=== PATIENT | female | born 1965 | race American Indian/Alaskan Native ===

== ENCOUNTER 2020-11-20 14:42 | Outpatient (CLI) | payer BC, OTHER ==
--- NOTE | 2020-11-20 15:20 | XRay Report ---
CHEST PA AND LATERAL VIEWS INDICATION: SOB/ WHEEZING. COMPARISON: None. FINDINGS: Support devices: None. Heart: Within normal limits. Lungs/Pleura: No acute pulmonary or pleural findings. IMPRESSION: 1. No acute findings. Signer Name: Benson Kingston MD Signed: 11/20/2020 3:15 PM Workstation Name: [id number]
== END 2020-11-20 14:43 | disposition home or self-care (01) ==
LOC: SPVIMAG 14:42
PROVIDERS: ATTEND Internal Medicine
DX: R06.02 Shortness of breath (principal); R06.2 Wheezing
CPT/HCPCS: 71046

== ENCOUNTER 2022-01-10 09:53 | Emergency (ER) | payer OTHER ==
[2022-01-10] MEDS ORDERED: ONDANSETRON 4 MG/2 ML INJ IV ONE (10:10)
[2022-01-10] MEDS ORDERED: MORPHINE 4 MG/1 ML INJ IV ONE (10:10)
[2022-01-10] MEDS ORDERED: SODIUM CHLORIDE 0.9% 1000 ML 1,000 ML IV ONE (10:10)
[2022-01-10] MEDS ORDERED: HYDROmorphone 1 MG/1 ML INJ IV ONE (10:33)
[2022-01-10 11:12] LABS: Basophils # (Auto) 0.1 K/mm3 (0.0-0.1); Basophils % (Auto) 0.8 % (0.0-1.8); Eosinophils # (Auto) 0.3 K/mm3 (0.0-0.4); Eosinophils % (Auto) 3.6 % (0.0-4.3); Hematocrit 38.7 % (30.3-42.9); Hemoglobin 13.3 gm/dl (10.1-14.3); Lymphocytes # (Auto) 1.9 K/mm3 (1.2-5.4); Lymphocytes % (Auto) 26.8 % (13.4-35.0); Mean Corpuscular HGB Conc 34 % (30-34); Mean Corpuscular Volume 85 fl (79-97); Monocytes # (Auto) 0.5 K/mm3 (0.0-0.8); Monocytes % (Auto) 7.7 % (0.0-7.3); Platelet Count 186 K/mm3 (140-440); Red Blood Count 4.54 M/mm3 (3.65-5.03); Red Cell Distribution Width 13.1 % (13.2-15.2)
[2022-01-10 11:36] LABS: Alanine Aminotransferase 27 units/L (7-56); Albumin 4.2 g/dL (3.9-5); BUN/Creatinine Ratio 18; Blood Urea Nitrogen 11 mg/dL (7-17); Calcium 8.8 mg/dL (8.4-10.2); Hemolysis Index 8
--- NOTE | 2022-01-10 12:24 | Cat Scan Report ---
CT CHEST WITH CONTRAST INDICATION / CLINICAL INFORMATION: pain s/p fall OMNIPAQUE 350 100ML. TECHNIQUE: Axial CT images were obtained through the chest after IV contrast. All CT scans at this [facility] are performed using CT dose reduction for ALARA by means of automated exposure control. COMPARISON: None available. FINDINGS: SKELETAL SYSTEM: No acute abnormality. HEART: No significant abnormality. CORONARY ARTERY CALCIFICATION: Present -- Mild. THORACIC AORTA: No significant abnormality. MEDIASTINUM / AMADOR: No significant abnormality. PLEURA: No pleural effusion. No pneumothorax. LUNGS: No acute air space or interstitial disease. ADDITIONAL FINDINGS: None. IMPRESSION: 1. No significant abnormality. Signer Name: Benson Kingston MD Signed: 01/10/2022 12:19 PM Workstation Name: [id number]
--- NOTE | 2022-01-10 12:35 | Cat Scan Report ---
CT ABDOMEN AND PELVIS WITH IV CONTRAST INDICATION: pain s/p fall OMNIPAQUE 350 100ML. COMPARISON: None available. TECHNIQUE: All CT scans at this facility use dose modulation, automated exposure control, iterative reconstructi on or weight based dosing, when appropriate, to reduce radiation dose to as low as reasonably achieva ble. FINDINGS: Lung Bases: No significant abnormality. Skeletal System: No acute abnormality. ABDOMEN: Liver: No significant abnormality. Gallbladder: Removed. Bile Ducts: No significant abnormality. Adrenals: No significant abnormality. Right Kidney: No significant abnormality. Left Kidney: No significant abnormality. There is a simple cyst in the upper pole. Pancreas: No significant abnormality. Spleen: No significant abnormality. Upper GI tract: No significant abnormality. Lymph Nodes: No significant adenopathy. Aorta: No significant abnormality. Additional Findings: No significant abnormality. PELVIS: Colon: No acute abnormality. Urinary Bladder and Distal Ureters: No significant abnormality. Appendix: No significant abnormality. Lymph Nodes: No significant adenopathy. Additional Findings: None. IMPRESSION: 1. No acute process in the abdomen or pelvis. Signer Name: Benson Kingston MD Signed: 01/10/2022 12:31 PM Workstation Name: [id number]
--- NOTE | 2022-01-10 12:38 | Cat Scan Report ---
. CT LUMBAR SPINE WITHOUT CONTRAST INDICATION: Low back pain after fall. TECHNIQUE: Axial CT images of the spine were obtained. Sagittal and coronal reformatted images were produced. Al l CT scans at this location are performed using CT dose reduction for ALARA by means of automated exp osure control. COMPARISON: None available. FINDINGS: ACUTE FRACTURE(S) OR SUBLUXATION: None. SPINAL DEGENERATIVE CHANGES: No significant degenerative changes. PARASPINAL SOFT TISSUES: No soft tissue swelling or other acute abnormalities. ADDITIONAL FINDINGS: No significant additional findings. IMPRESSION: 1. No acute fracture or subluxation in the spine in neutral position. Signer Name: Benson Kingston MD Signed: 01/10/2022 12:34 PM Workstation Name: [id number]
--- NOTE | 2022-01-10 12:47 | Emergency Department Report ---
ED Fall HPI - General Chief Complaint: Fall Stated Complaint: BACK PAIN/FALL Time Seen by Provider: 01/10/22 10:08 Source: patient Mode of arrival: Wheelchair - History of Present Illness Initial Comments: This is a 56-year-old female nontoxic, well nourished in appearance, no acute signs of distress presents to the ED with c/o of acute right side lower back pain, right lateral rib pain and abdominal pain status post fall that occurred prior to arrival. Patient that he had a mechanical trip and fall about 6 stairs. Denies any neck pain. Denies any LOC. Denies any mid back pain. Denies any other complaints or symptoms. Patient denies any radiation of pain. Patient denies any other injuries or trauma. Denies any bladder or bowel instability. Patient denies any urinary symptoms. Denies any fever, chills, nausea, vomiting, headache, stiff neck, chest pain or shortness of breath. Patient denies any numbness or tingling. Denies any allergies. Denies significant past medical history. MD Complaint: fall -: This morning Fall From: standing Place Fall Occurred: home Loss of Consciousness: none Prolonged Down Time?: no Symptoms Prior to Fall: none Location: chest, back, abdomen Severity: mild Severity scale (0 -10): 8 Quality: aching Context: tripped/slipped Associated Symptoms: denies: headache, neck pain, numbness, weakness, chest paint, shortness of breath, abdominal pain, hematuria, lightheaded, vertigo, confusion - Related Data Previous Rx's Medication Instructions Recorded Last Taken Type Cyclobenzaprine [Flexeril] 10 mg PO QHS PRN #10 tab 01/10/22 Unknown Rx Naproxen 500 mg PO Q8H PRN #15 tab 01/10/22 Unknown Rx Allergies Allergy/AdvReac Type Severity Reaction Status Date / Time No Known Allergies Allergy Unverified 01/10/22 10:05 ED Review of Systems ROS: Stated complaint: BACK PAIN/FALL Other details as noted in HPI Comment: All other systems reviewed and negative Constitutional: denies: chills, fever Eyes: denies: eye pain, eye discharge, vision change ENT: denies: ear pain, throat pain Respiratory: denies: cough, shortness of breath, wheezing Cardiovascular: other (Right lateral rib pain). denies: chest pain, palpitations, dyspnea on exertion, orthopnea, edema, syncope, paroxysmal nocturnal dyspnea Endocrine: no symptoms reported Gastrointestinal: abdominal pain. denies: nausea, vomiting, diarrhea, constipation, hematemesis, melena, hematochezia Genitourinary: denies: urgency, dysuria, discharge Musculoskeletal: back pain. denies: joint swelling, arthralgia Skin: denies: rash, lesions Neurological: denies: headache, weakness, paresthesias Psychiatric: denies: anxiety, depression Hematological/Lymphatic: denies: easy bleeding, easy bruising ED Past Medical Hx - Surgical History Past Surgical History?: No - Social History Smoking Status: Former Smoker Substance Use Type: Alcohol - Medications Home Medications: Home Medications Medication Instructions Recorded Confirmed Last Taken Type Cyclobenzaprine [Flexeril] 10 mg PO QHS PRN #10 tab 01/10/22 Unknown Rx Naproxen 500 mg PO Q8H PRN #15 tab 01/10/22 Unknown Rx ED Physical Exam - General Limitations: No Limitations General appearance: alert, in no apparent distress - Head Head exam: Present: atraumatic, normocephalic - Eye Eye exam: Present: normal appearance, PERRL, EOMI - ENT ENT exam: Present: normal exam, normal orophraynx - Neck Neck exam: Present: normal inspection, full ROM. Absent: tenderness, meningismus, lymphadenopathy - Respiratory Respiratory exam: Present: normal lung sounds bilaterally, chest wall tenderness (Right lateral lower rib pain). Absent: respiratory distress, wheezes, rales, rhonchi, stridor, accessory muscle use, decreased breath sounds, prolonged expiratory - Cardiovascular Cardiovascular Exam: Present: regular rate, normal rhythm, normal heart sounds. Absent: bradycardia, tachycardia, irregular rhythm, systolic murmur, diastolic murmur, rubs, gallop - GI/Abdominal GI/Abdominal exam: Present: soft, tenderness (Right lateral upper abdomen), normal bowel sounds. Absent: distended, guarding, rebound, rigid, diminished bowel sounds - Extremities Exam Extremities exam: Present: normal inspection, full ROM, normal capillary refill. Absent: tenderness, joint swelling - Back Exam Back exam: Present: normal inspection, full ROM, paraspinal tenderness (Right lumbar paraspinal). Absent: tenderness, CVA tenderness (R), CVA tenderness (L), muscle spasm, vertebral tenderness, rash noted - Expanded Back Exam Expanded Back exam: Absent: saddle anesthesia Back exam: Negative Straight Leg Raising: Left, Right - Neurological Exam Neurological exam: Present: alert, oriented X3, normal gait - Psychiatric Psychiatric exam: Present: normal affect, normal mood - Skin Skin exam: Present: warm, dry, intact, normal color. Absent: rash ED Course Vital Signs 01/10/22 01/10/22 09:56 10:41 Temperature 97.8 F Pulse Rate 83 Respiratory 18 18 Rate Blood Pressure 114/45 121/67 [Left] O2 Sat by Pulse 100 100 Oximetry - Reevaluation(s) Reevaluation #1: 01/10/22 12:47 Patient is speaking in full sentences with no signs of distress noted. ED Medical Decision Making - Lab Data Result diagrams: 01/10/22 10:56 01/10/22 10:56 - Radiology Data [facility] [address] [place] [address] Cat Scan Report Signed Patient: SCARLETT WRIGHT MR#: [id number] : 1965 Acct:[id number] Age/Sex: 56 / F ADM Date: 01/10/22 Loc: ED Attending Dr: Ordering Physician: DEE DEE GUERRERO NP Date of Service: 01/10/22 Procedure(s): CT lumbar spine wo con Accession Number(s): [id number] cc: DEE DEE GUERRERO NP . CT LUMBAR SPINE WITHOUT CONTRAST INDICATION: Low back pain after fall. TECHNIQUE: Axial CT images of the spine were obtained. Sagittal and coronal reformatted images were produced. All CT scans at this location are performed using CT dose reduction for ALARA by means of automated exposure control. COMPARISON: None available. FINDINGS: ACUTE FRACTURE(S) OR SUBLUXATION: None. SPINAL DEGENERATIVE CHANGES: No significant degenerative changes. PARASPINAL SOFT TISSUES: No soft tissue swelling or other acute abnormalities. ADDITIONAL FINDINGS: No significant additional findings. IMPRESSION: 1. No acute fracture or subluxation in the spine in neutral position. Signer Name: Benson Kingston MD Signed: 01/10/2022 12:34 PM Workstation Name: [id number] Transcribed By: Dictated By: Benson Kingston MD Electronically Authenticated By: Benson Kingston MD Signed Date/Time: 01/10/22 1234 DD/ 1233 TD/TT: [address] [address] Cat Scan Report Signed Patient: SCARLETT WRIGHT MR#: [id number] : 1965 Acct:[id number] Age/Sex: 56 / F ADM Date: 01/10/22 Loc: ED Attending Dr: Ordering Physician: DEE DEE GUERRERO NP Date of Service: 01/10/22 Procedure(s): CT abdomen pelvis w con Accession Number(s): [id number] cc: DEE DEE GUERRERO NP CT ABDOMEN AND PELVIS WITH IV CONTRAST INDICATION: pain s/p fall OMNIPAQUE 350 100ML. COMPARISON: None available. TECHNIQUE: All CT scans at this facility use dose modulation, automated exposure control, iterative reconstruction or weight based dosing, when appropriate, to reduce radiation dose to as low as reasonably achievable. FINDINGS: Lung Bases: No significant abnormality. Skeletal System: No acute abnormality. ABDOMEN: Liver: No significant abnormality. Gallbladder: Removed. Bile Ducts: No significant abnormality. Adrenals: No significant abnormality. Right Kidney: No significant abnormality. Left Kidney: No significant abnormality. There is a simple cyst in the upper pole. Pancreas: No significant abnormality. Spleen: No significant abnormality. Upper GI tract: No significant abnormality. Lymph Nodes: No significant adenopathy. Aorta: No significant abnormality. Additional Findings: No significant abnormality. PELVIS: Colon: No acute abnormality. Urinary Bladder and Distal Ureters: No significant abnormality. Appendix: No significant abnormality. Lymph Nodes: No significant adenopathy. Additional Findings: None. IMPRESSION: 1. No acute process in the abdomen or pelvis. Signer Name: Benson Kingston MD Signed: 01/10/2022 12:31 PM Workstation Name: [id number] Transcribed By: Dictated By: Benson Kingston MD Electronically Authenticated By: Benson Kingston MD Signed Date/Time: 01/10/22 1231 DD/ 1227 TD/TT: [address] [address] Cat Scan Report Signed Patient: SCARLETT WRIGHT MR#: [id number] : 1965 Acct:[id number] Age/Sex: 56 / F ADM Date: 01/10/22 Loc: ED Attending Dr: Ordering Physician: DEE DEE GUERRERO NP Date of Service: 01/10/22 Procedure(s): CT chest w con Accession Number(s): [id number] cc: DEE DEE GUERRERO NP CT CHEST WITH CONTRAST INDICATION / CLINICAL INFORMATION: pain s/p fall OMNIPAQUE 350 100ML. TECHNIQUE: Axial CT images were obtained through the chest after IV contrast. All CT scans at this location are performed using CT dose reduction for ALARA by means of automated exposure control. COMPARISON: None available. FINDINGS: SKELETAL SYSTEM: No acute abnormality. HEART: No significant abnormality. CORONARY ARTERY CALCIFICATION: Present -- Mild. THORACIC AORTA: No significant abnormality. MEDIASTINUM / AMADOR: No significant abnormality. PLEURA: No pleural effusion. No pneumothorax. LUNGS: No acute air space or interstitial disease. ADDITIONAL FINDINGS: None. IMPRESSION: 1. No significant abnormality. Signer Name: Benson Kingston MD Signed: 01/10/2022 12:19 PM Workstation Name: [id number] Transcribed By: ROGERIO Dictated By: Benson Kingston MD Electronically Authenticated By: Benson Kingston MD Signed Date/Time: 01/10/22 121 DD/ 16 TD/TT: - Medical Decision Making 56-year-old female that presents with a fall. Patient is stable and was examined by me. Patient is notified of the CT results with no questions noted by the patient. Patient received medical treatment in ER which stated improved and subsided. I will discharge patient with naproxen for pain. Patient was instructed to follow-up with a primary care doctor in 3-5 days or if symptoms worsen and continue return to emergency room as soon as possible. At time of discharge, the patient does not seem toxic or ill in appearance. No acute signs of distress noted. Patient agrees to discharge treatment plan of care. No further questions noted by the patient. Critical care attestation.: If time is entered above; I have spent that time in minutes in the direct care o f this critically ill patient, excluding procedure time. ED Disposition Clinical Impression: Fall Qualifiers: Encounter type: initial encounter Qualified Code(s): W19.XXXA - Unspecified fall, initial encounter Chest wall contusion Qualifiers: Encounter type: initial encounter Laterality: right Qualified Code(s): S20.211A - Contusion of right front wall of thorax, initial encounter Abdominal wall contusion Qualifiers: Encounter type: initial encounter Qualified Code(s): S30.1XXA - Contusion of abdominal wall, initial encounter Low back pain Qualifiers: Chronicity: acute Back pain laterality: right Sciatica presence: without sciatica Qualified Code(s): M54.50 - Low back pain, unspecified Disposition: 01 HOME / SELF CARE / HOMELESS Is pt being admited?: No Does the pt Need Aspirin: No Condition: Stable Additional Instructions: Follow-up with your primary care doctor in 3-5 days or if symptoms worsen such as bladder or bowel stability, chest pain, short of breath, numbness or tingling sensation in extremities, headache, dizziness, visual changes, nausea vomiting, or abdominal pain, return back to emergency room as was possible. Take Naproxen and Flexeril as prescribed. Do not operate heavy machinery while taking Flexeril due to sedation Prescriptions: Cyclobenzaprine [Flexeril] 10 mg PO QHS PRN #10 tab PRN Reason: Muscle Spasm Naproxen 500 mg PO Q8H PRN #15 tab PRN Reason: Pain , Severe (7-10) Referrals: PRIMARY MD JOSIANE [Primary Care Provider] - 3-5 Days CLAIRE NORWOOD MD [Staff Physician] - 3-5 Days Time of Disposition: 12:52
[2022-01-10 13:18] VITALS: BP 138/78
== END 2022-01-10 13:16 | disposition home or self-care (01) ==
LOC: ED 09:53
DX: S20.219A Contusion of unspecified front wall of thorax, initial encounter (principal); S30.1XXA Contusion of abdominal wall, initial encounter; M54.50 Low back pain, unspecified; Z87.891 Personal history of nicotine dependence; W19.XXXA Unspecified fall, initial encounter; Y93.89 Activity, other specified; Y92.89 Other specified places as the place of occurrence of the external cause; Y99.8 Other external cause status
CPT/HCPCS: 36415; 71260; 72131; 74177; 80053; 85025; 96361; 96374; 96375; 99284; J1170; J2270; J2405; J7030; Q9967